=== PATIENT | female | born 1955 | race Caucasian/White ===

== ENCOUNTER → 2016-10-29 | Outpatient (CLI) | payer OTHER ==
[~2016-10-29] MED LIST: CHEMO; DELT1TAB PO; LEVA500T PO; ONDA1TAB16 PO; PROC10TA PO
--- NOTE | 2016-11-03 10:03 | REP ---
PET/CT: HISTORY: Restaging mantel cell lymphoma. COMPARISONS: Comparison PET/CT study December 06, 2015. Comparison CT study of the chest abdomen and pelvis March 06, 2016. TECHNIQUE: 65 minutes following the intravenous injection of a it 9.9 mCi dose of F-18 FDG, three-dimensional PET scintigraphy is acquired from the skull base to the proximal thighs. Triplanar noncontrast CT scanning is acquired through the same anatomic range for attenuation correction, and image registration with scan parameters optimized to minimize radiation exposure to the patient. PET scintigraphy and CT datasets were fused and displayed on a workstation with multiplanar and projection display capability. PET/CT FINDINGS: The PET/CT imaging findings show some improvement in the upper abdominal and left periaortic adenopathy noted previously. These lymph nodes have regressed in size and in FDG accumulation. The israel focus in the left periaortic retroperitoneal is no longer hypermetabolic, standard uptake value 1.4 today compared to 3.8 previously. Previous study showed heterogeneous mildly hypermetabolic uptake in celiac axis and periportal lymph nodes which have improved and which are no longer hypermetabolic. The spleen is still massively enlarged although slightly less so, 21 cm in craniocaudal span versus 24 cm. The previous PET/CT study showed a hypermetabolic focus in the lateral aspect of the spleen, which is no longer apparent. Today's PET/CT study however shows a new focus in the anterior aspect of the spleen superiorly. This is new. Maximum SUV value here is 7.2. This focus measures 1.8 cm. There is also a new hypermetabolic focus in a small right axillary lymph node. Maximum standard uptake value in this node is 8.7. The lymph node is 1.1 cm in diameter and appears morphologically normal on the accompanying CT study. Other axillary lymph nodes have regressed in size and avidity since December 17, 2015. There is a minimally hypermetabolic focus in the right hilar lymph node previously noted. On today's exam, maximum standard uptake value here is 3.7. There is a 1.4 cm stable non-hypermetabolic left internal mammary lymph node again visible with maximum standard uptake value 1.4. No other abnormal hypermetabolic focus is seen. IMPRESSION: There are multiple areas of improvement. There is a focus of new hypermetabolic uptake in the anterior superior spleen and another new [place] focus is seen in the right axillary lymph node chain. Slight improvement in the size of the massively enlarged spleen is seen. Retroperitoneal and upper abdominal lymph nodes are improved. Stable right hilar and left internal mammary lymph nodes are seen. Signed by David De La Cruz MD 11/03/2016 10:54 A
== END ==
LOC: M PLARAD 10:00
PROVIDERS: ATTEND Internal Medicine Medical Oncology
DX: C83.18 Mantle cell lymphoma, lymph nodes of multiple sites (principal); C85.95 Non-Hodgkin lymphoma, unspecified, lymph nodes of inguinal region and lower limb
CPT/HCPCS: 78815; A9552

== ENCOUNTER → 2016-12-23 | Outpatient (CLI) | payer OTHER ==
[~2016-12-23] MED LIST changes: +GASTROGRAFIN SOLUTION 30ML (Q9963) As Ordered ONE; +ISOVUE-370 76% 100ML VIAL (Q9967) As Ordered ONE
--- NOTE | 2016-12-23 13:08 | REP ---
Clinical: Mantel cell lymphoma with splenomegaly. Technique: Axial contrast enhanced images from the lung bases to the pubic symphysis using oral and 100 ml Isovue 370 intravenous contrast material with precontrast and delayed images of the abdomen as well as coronal and sagittal re-formations. Comparison: 03/06/2016. Findings: Severe splenomegaly has increased from prior examination with the spleen now measuring 23 cm in craniocaudal length and approximately 18.3 x 10.9 cm AP and transverse diameter at the level of the hilum. A small amount of subcapsular fluid and low density extends into the posterior lateral spleen likely representing sequelae of prior splenic infarction/laceration identified on 03/06/2016. No further focal splenic lesion identified. Upper abdominal adenopathy primarily noted in the jah hepatis, celiac axis and para-aortic retroperitoneal region appears to be mildly increased from prior examination. Specifically, conglomerate lymph nodes surrounding the infrahepatic IVC have increased in size as well as left para-aortic lymph node currently measuring 2.4 cm maximal transverse diameter and previously measuring approximately 2 cm maximal transverse diameter. Smaller lymph nodes in the right lower quadrant remain relatively stable. The liver, pancreas, gallbladder, bilateral adrenal glands and kidneys are relatively normal / stable. 1.2 cm hepatic hypodensity likely representing cyst is unchanged in the lateral segment left lobe. The enteric system is without obstruction or acute inflammatory process. Colonic and sigmoid diverticulosis noted without acute diverticulitis. Pelvis demonstrates normal bladder and evidence for prior hysterectomy. No ascites. No free air. Atherosclerotic changes of the aorta and vasculature noted without aneurysm. Musculoskeletal structures are intact. Lung bases are clear. Impression: 1. Severe splenomegaly increased from prior examination as well as upper abdominal adenopathy predominantly in the jah hepatis region surrounding the IVC appear to have slightly increased in size. 2. Further chronic changes as described above remains stable including diverticulosis, 1.2 cm hepatic cyst, atherosclerotic changes to the vasculature and degenerative changes the musculoskeletal structures. Signed by Kit Steiner MD 12/23/2016 01:00 P
--- NOTE | 2016-12-23 13:14 | REP ---
Clinical: Mantel cell lymphoma for follow-up. Technique: Axial contrast enhanced images from the thoracic inlet to the upper abdomen using 100 ml Isovue 370 intravenous contrast material with coronal and sagittal re-formations. Comparison: 03/06/2016. Findings: The bilateral lung wong are well-aerated, symmetric, and essentially clear. No acute consolidation, nodule or mass lesion is appreciated. No pleural effusion/reaction or pneumothorax. Tracheobronchial tree is patent. Mediastinum demonstrates atherosclerotic changes to the thoracic aorta and coronary arteries without cardiomegaly or pericardial effusion. Thoracic aorta is without aneurysm or dissection. Mediastinal adenopathy including prevascular, pretracheal and right hilar adenopathy is slightly increased from prior examination. Specifically, right hilar lymph nodes previously measuring 16 mm currently measures 25 mm, and pretracheal lymph node previously measuring 11 mm currently measures 16 mm. Axillary lymph nodes appear normal. Musculoskeletal structures demonstrate age-related changes without focal osseous abnormality. [id number] extends from the right anterior chest wall into the right atrium. Abdominal findings discussed in abdominal CT report. Impression: 1. Mediastinal and hilar adenopathy increased from prior examination. 2. No acute pulmonary parenchymal or pleural process. Signed by Kit Steiner MD 12/23/2016 01:06 P
== END ==
LOC: M RAD 10:47
PROVIDERS: ATTEND Internal Medicine Medical Oncology
DX: C83.10 Mantle cell lymphoma, unspecified site (principal); R16.1 Splenomegaly, not elsewhere classified

== ENCOUNTER → 2016-12-26 | Outpatient (REF) | payer OTHER ==
[~2016-12-26] MED LIST changes: -GASTROGRAFIN SOLUTION 30ML (Q9963) As Ordered ONE; -ISOVUE-370 76% 100ML VIAL (Q9967) As Ordered ONE; +LEVA1TAB2 PO; -LEVA500T PO; -ONDA1TAB16 PO; +ONDA8TAB7 PO
[2016-12-26 14:08] LABS: INR 1.12
== END ==
LOC: M LAB REF 13:50
PROVIDERS: ATTEND Internal Medicine Medical Oncology
DX: C83.10 Mantle cell lymphoma, unspecified site (principal)

== ENCOUNTER → 2017-01-12 | Outpatient (REF) | payer OTHER | LOC: M LAB REF 18:42 | PROVIDERS: ATTEND Internal Medicine Medical Oncology | DX: C85.90 Non-Hodgkin lymphoma, unspecified, unspecified site (principal) ==

== ENCOUNTER → 2017-02-03 | Outpatient (CLI) | payer OTHER ==
--- NOTE | 2017-02-04 15:04 | REP ---
Whole body PET CT scan: Comparison is the previous PET CT scan dated 10/29/[address] of the chest abdomen and pelvis dated 12/23 2016. Whole-body scanning is performed from skull base to the upper thighs. Neck and supraclavicular areas: There are too left submandibular foci in normal size nodes with a standard uptake values of 2.5 and 5.5. There is new uptake in a right submandibular normal size node with the standard uptake value of 2.9. There is new hypermetabolic uptake in the sublingual salivary glands with the maximal uptake measuring 3.14. The uptake in the salivary glands can be artifactual. Chest: The uptake in the right normal size axillary node is now non hypermetabolic measuring two point 08/04. There is a new multifocal uptake in the right hilus with a maximal standard uptake value measuring 4.95. There is new uptake in the left hilus with maximal standard uptake value of 4.7. There is new uptake in subcarinal nodes with a maximal standard uptake value of 6.1. There is new paratracheal uptake with a standard uptake value of 5.3. Abdomen, pelvis and upper thighs. There are is new uptake in the jah hepatis with a standard uptake value of 7.5. There is new uptake in the gastrohepatic area with a standard uptake value of 7.2. There is new focal uptake in the left renal hilus with a standard uptake value of 19, 0.9. This could be artifact from the renal pelvis. There is new multifocal periaortic uptake with the standard uptake value of 6.2. There is new uptake in a right lower quadrant mesenteric node with a standard uptake value of 4.0. There is new uptake in another right lower quadrant mesenteric node medial to the cecum with a standard uptake value of 6.5. There is new uptake in the several adjacent right iliac nodes, the standard uptake value measuring 4.0. The spleen has decreased in size. On the current study they are two large zones of photopenia in the spleen as an interval change. Impression: There are multiple new hypermetabolic foci in the neck, chest, abdomen and pelvis. The spleen continues to decrease in size. On the current study there are two large focal zones of photopenia in the spleen. The study is performed with 10 mCi of F 18 FDG. Signed by Phong Suero MD 02/04/2017 02:56 P
== END ==
LOC: M PLARAD 13:09
PROVIDERS: ATTEND Internal Medicine Medical Oncology
DX: C85.90 Non-Hodgkin lymphoma, unspecified, unspecified site (principal)
CPT/HCPCS: 78815; A9552

== ENCOUNTER → 2017-06-17 | Outpatient (REF) | payer OTHER | LOC: M LAB REF 18:15 | PROVIDERS: ATTEND Internal Medicine Medical Oncology | DX: C85.90 Non-Hodgkin lymphoma, unspecified, unspecified site (principal) ==

== ENCOUNTER → 2017-07-01 | Outpatient (REF) | payer OTHER ==
[2017-07-01 14:17] LABS: URIC ACID 8.8 MG/DL (2.6-6.0)
== END ==
LOC: M LAB REF 12:50
DX: C83.10 Mantle cell lymphoma, unspecified site (principal)

== ENCOUNTER → 2017-07-15 | Outpatient (REF) | payer OTHER ==
[2017-07-15 14:16] LABS: URIC ACID 7.9 MG/DL (2.6-6.0)
== END ==
LOC: M LAB REF 13:12
DX: C90.00 Multiple myeloma not having achieved remission (principal)

== ENCOUNTER → 2017-08-12 | Outpatient (REF) | payer OTHER ==
[2017-08-12 18:20] LABS: URIC ACID 6.9 MG/DL (2.6-6.0)
== END ==
LOC: M LAB REF 17:06
DX: C83.10 Mantle cell lymphoma, unspecified site (principal)

== ENCOUNTER → 2017-08-20 | Outpatient (CLI) | payer OTHER ==
[~2017-08-20] MED LIST changes: -CHEMO; -DELT1TAB PO; +GASTROGRAFIN SOLUTION 30ML (Q9963) As Ordered; +ISOVUE-370 76% 100ML VIAL (Q9967) As Ordered; -LEVA1TAB2 PO; -ONDA8TAB7 PO; -PROC10TA PO
== END ==
LOC: M RAD 11:48
DX: Z85.72 Personal history of non-Hodgkin lymphomas (principal); R10.30 Lower abdominal pain, unspecified; R59.9 Enlarged lymph nodes, unspecified
CPT/HCPCS: Q9963